=== PATIENT | female | born 1995 | race African-American/Black ===

== ENCOUNTER 2021-04-16 18:34 | Day surgery (SDC) | payer BC ==
[2021-04-16] MEDS ORDERED: Ketorolac Tromethamine 30 MG/ML VIAL ONE (18:49)
[2021-04-16] MEDS ORDERED: PROPOFOL 20 ML ONE (18:49)
[2021-04-16] MEDS ORDERED: Succinylcholine 200 MG/10 ml SYRINGE FS ONE (18:49)
[2021-04-16] MEDS ORDERED: Lidocaine 2% PF 5 ML VIAL ONE (18:49)
[2021-04-16] MEDS ORDERED: Ondansetron PF 4 MG/2 ML Vial ONE ×2 (18:49→19:39)
[2021-04-16] MEDS ORDERED: EPINEPHrine 1 MG/ML AMP ONE (18:57)
[2021-04-16] MEDS ORDERED: Bupivacaine PF 0.5% 30 ML VIAL ONE (18:57)
[2021-04-16] MEDS ORDERED: Fentanyl 100 MCG/2 ML VIAL ONE ×2 (19:03→20:19)
[2021-04-16] MEDS ORDERED: Dexamethasone 4 mg/ml Vial ONE (19:40)
[2021-04-16] MEDS ORDERED: Rocuronium Bromide 10 MG/ML (10ML VIAL) ONE (19:40)
[2021-04-16] MEDS ORDERED: HYDROmorphone 0.5 MG/0.5 ML SYRINGE ONE (21:19)
[2021-04-16] MEDS ORDERED: Meperidine HCl/PF 25 MG/ML VIAL ONE (21:26)
[2021-04-16 21:40] LABS: Mean Corpuscular HGB CONC 34.1 g/dL (32.0-36.0); Mean Corpuscular Hemoglobin 29.3 pg (27.0-33.0); Mean Corpuscular Volume 85.9 fl (81.6-98.3); Mean Platelet Volume 11.2 fl (7.4-10.4); Platelet Count 263 10x3/uL (150-450); RBC Distribution Width 13.1 % (11.5-14.5); Red Blood Cell (RBC) Count 3.41 10x6/uL (3.90-5.03); White Blood Cell (WBC) Count 15.3 10x3/uL (3.5-10.5)
== END 2021-04-16 22:52 | disposition home or self-care (01) ==
LOC: CSHSDC/OP 18:34
PROVIDERS: ATTEND Obstetrics & Gynecology
PROC: 0U504ZZ Destruction of Right Ovary, Percutaneous Endoscopic Approach (ICD-10-PCS; principal; 2021-04-16)
DX: N83.8 Other noninflammatory disorders of ovary, fallopian tube and broad ligament (principal); O00.90 Unspecified ectopic pregnancy without intrauterine pregnancy; K66.1 Hemoperitoneum; D57.3 Sickle-cell trait
CPT/HCPCS: 86850; 86900; 86901; C1713; C1776; J0171; J1100; J1170; J1885; J2001; J2175; J2405; J2704; J3010; S0020